=== PATIENT | female | born 1950 | race Caucasian/White ===

== ENCOUNTER → 2024-06-13 | Day surgery (SDC) | payer MEDICARE ==
[~2024-06-13] MED LIST: ADVAIR 250-501 EACH INH; ASPIRIN81 MG PO; COLACE PO; CRANBERRY400 M1 PO; CYCLOBENZAPRINE5 MG PO; CYMBALTA60 MG PO; FAMOTIDINE20 MG PO; FARXIGA10 MG PO; FLOMAX0.4 MG PO; LACTULOSE20 GM/30 M PO; LIDOCAINE HCL 2% LOCAL INJ 5 ML SDV VIAL INJ ONE; LINZESS72 MCG PO; LIPITOR20 MG PO; METFORMIN HCL500 M2 PO; MORPHINE; NEURONTIN400 MG PO; ONDANSETRON ODT4 MG PO; PANTOPRAZOLE SO40 MG PO; PLAVIX75 MG PO; POTASSIUM CHLO10 ME1 PO; PROPOFOL IV EMULSION 10 MG/ML 20 ML VIAL ONE; SINGULAIR10 MG PO; SLEEP PO; SUCRALFATE1 GM PO; SYMBICORT 16010.2 GM INH; SYNTHROID50 MCG PO; TRAZODONE HCL100 MG PO; VALACYCLOVIR1000 MG PO; VENTOLIN HFA18 GM INH; VITAMIN D250 MCG PO; XYZAL5 MG PO
[2024-06-13 07:30] LABS: BASOPHILS # (AUTO) 0.1 (0.0-0.1); EOSINOPHILS # (AUTO) 0.2 (0.0-0.4); EOSINOPHILS % 2.6 % (0.0-6.0); HEMATOCRIT 42.2 % (34.2-44.1); HEMOGLOBIN 12.6 g/dL (12.0-16.0); LYMPHOCYTES # (AUTO) 2.6 (1.0-3.2); LYMPHOCYTES % 32.8 % (18.0-39.1); MEAN CORPUSCULAR HEMOGLOBIN 23.5 pg (28-32); MEAN CORPUSCULAR HGB CONC 29.9 g/dL (31-35); MEAN CORPUSCULAR VOLUME 78.6 fL (81-99); MONOCYTES # (AUTO) 0.6 (0.2-0.8); MONOCYTES % 7.8 % (4.4-11.3); NEUTROPHILS # (AUTO) 4.4 (2.1-6.9); NEUTROPHILS % 55.4 % (38.7-80.0); PLATELET COUNT 259 x10e3/uL (140-360); RED BLOOD COUNT 5.37 x10e6/uL (3.6-5.1)
[2024-06-13 07:40] LABS: INR 0.94
[2024-06-13] MEDS: LACTATED RINGER'S 1,000 ML ONE (07:45)
[2024-06-13 07:54] LABS: ANION GAP 13.4 mmol/L (8-16); CALCIUM 9.9 mg/dL (8.4-10.2); CREATININE, SERUM 0.8 mg/dL (0.57-1.11)
[2024-06-13 07:55] LABS: POTASSIUM 3.4 mmol/L (3.5-5.1)
[2024-06-13 08:32] VITALS: TEMP 97.2
[2024-06-13 09:00] VITALS: BP 122/79; PULSE 85; RESP 13; O2SAT 98
== END | disposition home or self-care (01) ==
LOC: OR 06:19
PROVIDERS: ATTEND Internal Medicine Gastroenterology
DX: R19.4 Change in bowel habit (principal); K63.5 Polyp of colon; K62.5 Hemorrhage of anus and rectum; K64.8 Other hemorrhoids; K21.9 Gastro-esophageal reflux disease without esophagitis; K76.0 Fatty (change of) liver, not elsewhere classified; E11.9 Type 2 diabetes mellitus without complications; J44.9 Chronic obstructive pulmonary disease, unspecified; E03.9 Hypothyroidism, unspecified; E66.01 Morbid (severe) obesity due to excess calories; N28.9 Disorder of kidney and ureter, unspecified; F32.A Depression, unspecified; Z91.041 Radiographic dye allergy status; Z91.040 Latex allergy status; Z91.048 Other nonmedicinal substance allergy status; Z79.82 Long term (current) use of aspirin; Z79.02 Long term (current) use of antithrombotics/antiplatelets; Z79.84 Long term (current) use of oral hypoglycemic drugs; Z79.899 Other long term (current) drug therapy; Z68.30 Body mass index [BMI] 30.0-30.9, adult; Z87.891 Personal history of nicotine dependence; Z86.73 Personal history of transient ischemic attack (TIA), and cerebral infarction without residual deficits
CPT/HCPCS: 36415; 45385; 80048; 85025; 85610; 85730; 88305; 93005; J2003; J2704; J7121; 45378